=== PATIENT | female | born 1960 | race Caucasian/White ===

== ENCOUNTER 2024-01-16 06:37 | Outpatient (CLI) | payer MEDICARE, SELFPAY ==
--- NOTE | ~2024-01-16 | MR_ITS ---
EXAMINATION: MR hand RT wo con DATE: 01/16/2024 07:23 INDICATION: Complete tear of the ulnar collateral ligament of the right first metacarpophalangeal santiago nt. TECHNIQUE: Magnetic resonance imaging (MRI) of the right hand was performed without intravenous contr ast to include the metacarpals and digits but excluding the carpus. Sequences included sagittal, zak nal, and axial T1-weighted FSE T2-weighted FS FSE. Patient returned for additional smaller field-of-v iew imaging centered at the first metacarpophalangeal joint with axial and coronal T1-weighted FSE, P D-weighted FS FSE and T2-weighted FS FSE. COMPARISON: None FINDINGS: Bone alignment is normal and the larger [id number] images. No fracture or pathologic marrow replac ing process. The joint spaces, metacarpophalangeal and interphalangeal collateral ligament complexes and the flexor and extensor tendons to the second-fifth digits are normal. There is mild osteoarthrit is at the first carpometacarpal, second and third metacarpophalangeal and multiple interphalangeal garrett ints. No joint effusions or abnormal fluid collections. There is complete avulsion of the proximal first metacarpal attachment of the ulnar collateral ligame nt complex of the first metacarpophalangeal joint. There is more readily apparent on the smaller fiel d-of-view images however there is secondary 5 mm radial subluxation and 40 degree radial angulation a t the joint. There is a small erosion at the ulnar head of the first metacarpal underlying the avulse d footplate of the ulnar collateral ligament complex. There is mild marrow edema along the ulnar side of the base of the first metacarpal which could be reactive edema related to the time of injury or m ore likely related to secondary moderate osteoarthritis at the first metacarpophalangeal joint. The f lexor and extensor tendons to the thumb are normal. IMPRESSION: 1. 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 Reviewed, dictated and finalized at location A. ING MANAGER IMPRESSION: 1. 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
== END 2024-01-16 06:38 | disposition home or self-care (01) ==
DX: S53.31XA Traumatic rupture of right ulnar collateral ligament, initial encounter (principal); S63.641A Sprain of metacarpophalangeal joint of right thumb, initial encounter; S63.001A Unspecified subluxation of right wrist and hand, initial encounter; X58.XXXA Exposure to other specified factors, initial encounter; M18.11 Unilateral primary osteoarthritis of first carpometacarpal joint, right hand; S63.659A Sprain of metacarpophalangeal joint of unspecified finger, initial encounter
CPT/HCPCS: 73218